=== PATIENT | female | born 1985 | race Caucasian/White ===

== ENCOUNTER 2017-09-29 12:45 | Emergency (ER) | END 2017-09-29 15:04 | disposition home or self-care (01) ==

== ENCOUNTER 2018-03-22 21:21 | Emergency (ER) | END 2018-03-23 | disposition home or self-care (01) ==

== ENCOUNTER 2018-04-20 22:50 | Emergency (ER) | END 2018-04-21 00:59 | disposition home or self-care (01) ==

== ENCOUNTER 2018-09-28 08:01 | Emergency (ER) | payer SELFPAY ==
[~2018-09-28] VITALS: Ht 167.6 cm; Wt 61.4 kg
[~2018-09-28 08:01] MED LIST: ACET500C5 PO; ACID1TAB14 PO; AMOX1TAB10 PO; CEPH-443 PO; HYDR-3498 PO; IBUP-1542 PO; NAPR-985 PO; NITR-58 PO; NORE-120 PO
[2018-09-28 08:21] VITALS: BP 116/65; PULSE 82; RESP 20; Ht 167.6 cm; Wt 61.4 kg
[2018-09-28] MEDS ORDERED: OXYM15MI9 NASAL (08:51)
[2018-09-28] MEDS ORDERED: D-ME473S2 PO (08:51)
[2018-09-28] MEDS ORDERED: BENZ-6 PO (08:51)
[2018-09-28] MEDS ORDERED: PROMETHAZINE/DM (CUP) PO ONE (09:00)
--- NOTE | 2018-09-28 09:01 | ERD ---
ER Documentation Chief Complaint Chief Complaint Complains of a cough and sore throat x 2 weeks HPI This is a 33-year-old female with a nonsignificant past medical history presents ED with complaints of cough times 3 weeks. Patient admits to headache, runny nose and dry cough. Denies fever, chills, sputum production, nausea, vomiting, diarrhea, constipation, trouble breathing, shortness of breath, wheezing and all other symptoms. Patient was seen by her primary care physician prescribed Z-Freddy but states that she has not gotten any better if not she is gotten worse. No known drug allergies. ROS All systems reviewed and are negative except as per history of present illness. Medications Home Meds Active Scripts Benzonatate* (Tessalon Perle*) 100 Mg Capsule, 100 MG PO Q8H PRN for COUGH for 5 Days, CAP Prov:RAPHAEL HERNANDEZ PA-C 09/28/18 Oxymetazoline Hcl* (Afrin Mist*) 0.05% - 15 Ml Mist, 2 SPRAY NASAL Q12, #1 EA Prov:RAPHAEL HERNANDEZ PA-C 09/28/18 Dextromethorphan Hb-Promethazine Hcl* (Promethazine DM* Syrup) 473 Ml Syrup, 5 ML PO Q6 PRN for COUGH for 5 Days, ML Prov:RAPHAEL HERNANDEZ PA-C 09/28/18 Ibuprofen* (Motrin*) 600 Mg Tab, 600 MG PO Q6, #30 TAB Prov:JAMARI LONGORIAC 04/21/18 Ibuprofen* (Motrin*) 600 Mg Tab, 600 MG PO Q6H PRN for PAIN AND OR ELEVATED TEMP, #30 TAB Prov:YASMEEN HOOVERC 03/22/18 Cephalexin* (Keflex*) 500 Mg Capsule, 500 MG PO QID for 5 Days, CAP Prov:YASMEEN HOOVERC 03/22/18 Acetaminophen* (Tylophen*) 500 Mg Capsule, 1 CAP PO Q6H PRN for PAIN AND OR ELEVATED TEMP, #30 CAP Prov:SUNITA SPARKSC 09/29/17 Nitrofurantoin Monohyd Macrocr* (Macrobid*) 100 Mg Capsr, 100 MG PO BID for 7 Days, CAP Prov:SUNITA SPARKSC 09/29/17 Naproxen* (Naprosyn*) 500 Mg Tablet, 500 MG PO BID PRN for PAIN AND/OR INFLAMMATION, #30 TAB Prov:SUNITA SPARKS PA-C 09/29/17 Lactobacillus Acidoph/Bulgaricus* (Floranex*) 1 Each Tablet, 1 TAB.CHEW PO BID for 14 Days, TAB.CHEW Prov:PILY CARDENAS 12/08/15 Amox Tr/Potassium Clavulanate (Amox Tr-K Clv 875-125 Mg Tab) 1 Tab Tablet, 1 TAB PO BID, #8 TAB Prov:PILY CARDENAS 12/08/15 Hydrocodone Bit/Acetaminophen (Anexsia 5-325 Mg Tablet) 1 Tab Tab, 1 TAB PO Q6 PRN for PAIN LEVEL 4-7, #20 TAB Prov:PILY CARDENAS 12/08/15 Reported Medications Norethindrone-E.estradiol-Iron (Blisovi 24 Fe Tablet) 1 Each Tablet, 1 TAB PO DAILY 12/07/15 Allergies Allergies: Coded Allergies: No Known Drug Allergy (Verified Allergy, Unknown, 06/13/08) PMhx/Soc History of Surgery: No Anesthesia Reaction: No Hx Neurological Disorder: No Hx Respiratory Disorders: No Hx Cardiac Disorders: No Hx Psychiatric Problems: No Hx Miscellaneous Medical Probl: No Hx Alcohol Use: No Hx Substance Use: No Hx Tobacco Use: No Smoking Status: Never smoker FmHx Family History: No diabetes Physical Exam Vitals Vital Signs Date Temp Pulse Resp B/P (MAP) Pulse Ox O2 O2 Flow FiO2 Time Delivery Rate 09/28/18 97.5 82 20 116/65 100 08:21 (82) Physical Exam Physical Exam Vitals signs: Reviewed by me. General: Well developed, well nourished, in no acute distress. Patient is awake and alert. Head: Normocephalic, atraumatic. Eyes: Normal conjunctiva, Pupils PERRLA, EOM intact grossly ENT: Pharynx is clear, Moist mucous membranes, external ears, nose and mouth normal Neck: Supple, no masses, lymphadenopathy or JVD Respiratory: Clear to auscultation bilaterally with no wheezing, rhonchi, rales, no distress Cardiovascular: RRR, no murmurs, rubs, or gallops Neurologic: Alert and oriented, moving all extremities, normal speech, no focal weakness, no cerebellar signs. Normal mentation Skin: warm and dry, No rash Psych: Normal mood Results 24 hrs Current Medications Medications Dose Sig/Ulices Start Time Status Last (Trade) Ordered Route PRN Stop Time Admin Dose Reason Admin Promethazine 5 ml ONCE ONCE 09/28/18 DC 09/28/18 HCl/ PO 09:00 09/28/18 08:47 Dextromethorp 09:00 medina (Phenergan-Dm ) Procedures/MDM ER COURSE: The patient was given the Promethazine DM for cough The medication was well tolerated and the patient reports improvement in symptoms. The patient was stable throughout ED course. I kept the patient and/or family informed of laboratory and diagnostic imaging results throughout the emergency room course. The patient was promptly evaluated and a treatment plan was devised based on H&P and other data. This plan was discussed with the patient who agreed and had no further questions or concerns prior to discharge. MEDICAL DECISION MAKIN-year-old female presents ED with complaints of cough times 3 weeks. The p atient's clinical presentation is very consistent with an URI. No evidence of pneumonia. The patient is well-appearing without respiratory distress. Normal oxygen saturation. X-ray imaging not indicated. No indication for Tamiflu. The patient does not exhibit any clinical signs or symptoms concerning for serious bacterial infection or systemic illness. Based on history and clinical exam findings the patient does not appear to have evidence of pneumonia, strep pharyngitis, urinary tract infection, bacteremia, sepsis, or meningitis. For these reasons I do not believe it is necessary to obtain laboratory testing or diagnostic imaging. I believe it would be appropriate for symptom control, and close outpatient primary care follow-up. We discussed follow up with the patient's primary care doctor within 24 to 48 hours as needed. We also discussed return to the emergency room for worsening symptoms or worsening condition. DISPOSITION PLAN: We discussed follow up with the patient's primary care doctor within 24 to 48 hours. Patient counseled regarding my diagnostic impression and care plan. Prior to discharge all questions answered. Pt agrees with treatment plan and understands strict return precautions. Precautionary instructions provided including instructions to return to the ER if not improving or for any worsening or changing symptoms or concerns. SPECIALIST FOLLOW UP RECOMMENDED: None Patient has been advised to follow up with primary care in 1-2 days. Disclaimer: Inadvertent spelling and grammatical errors are likely due to EHR/dictation software use and do not reflect on the overall quality of patient care. Also, please note that the electronic time recorded on this note does not necessarily reflect the actual time of the patient encounter. Departure Diagnosis: Primary Impression: URI (upper respiratory infection) URI type: unspecified URI Qualified Codes: J06.9 - Acute upper respiratory infection, unspecified Condition: Stable Patient Instructions: Preventing Common Respiratory Infections, Uri, Viral, No Abx (Adult) Referrals: [facility] YOU HAVE RECEIVED A MEDICAL SCREENING EXAM AND THE RESULTS INDICATE THAT YOU DO NOT HAVE A CONDITION THAT REQUIRES URGENT TREATMENT IN THE EMERGENCY DEPARTMENT. FURTHER EVALUATION AND TREATMENT OF YOUR CONDITION CAN WAIT UNTIL YOU ARE SEEN IN YOUR DOCTORS OFFICE WITHIN THE NEXT 1-2 DAYS. IT IS YOUR RESPONSIBILITY TO MAKE AN APPOINTMENT FOR FOLOW-UP CARE. IF YOU HAVE A PRIMARY DOCTOR --you should call your primary doctor and schedule an appointment IF YOU DO NOT HAVE A PRIMARY DOCTOR YOU CAN CALL OUR PHYSICIAN REFERRAL HOTLINE AT IF YOU CAN NOT AFFORD TO SEE A PHYSICIAN YOU CAN CHOSE FROM THE FOLLOWING [facility] [address] [facility] [address] [facility] [facility] [address] [facility] [address] [facility]. [facility] [address] [facility]. [facility] [address] Additional Instructions: Patient advised to return to the ED immediately for new or worsening symptoms. Patient advised to follow up with primary care provider in the next 24-48 hours. Patient verbalized understanding and agrees with treatment plan and course of action. If patient has no primary care they may follow up with one of the [facility] listed on the following page or one of the options listed below [address] [address] or [facility] [address] [place] [address] or [facility] [address] [place] [address] RAPHAEL HERNANDEZ PA-C Sep 28, 2018 09:01
== END 2018-09-28 08:56 | disposition home or self-care (01) ==
LOC: FTE 08:01
DX: J06.9 Acute upper respiratory infection, unspecified (principal)
CPT/HCPCS: 99283